=== PATIENT | male | born 1955 | race Caucasian/White ===

== ENCOUNTER 2016-09-25 06:10 | Outpatient (CLI) | payer OTHER ==
[~2016-09-25] VITALS: Ht 170.2 cm; Wt 181.0 kg
[2016-09-25] VITALS (9 sets, daily range): BP systolic 121–144; BP diastolic 56–76
[2016-09-25] MEDS ORDERED: IV NORMAL SALINE 1000ML BAG 1,000 ML IV SCH (06:34)
[2016-09-25] MEDS ORDERED: HEPARIN for ARTERIAL LINE 1,500 ML ONE (07:08)
[2016-09-25] MEDS ORDERED: IOHEXOL 300 MG/ML 100ML VIAL. ONE (07:08)
[2016-09-25] MEDS ORDERED: LIDOCAINE 2% 20 ML VIAL. ONE (07:09)
[2016-09-25 07:18] LABS: HEMATOCRIT 49.9 % (39.0-53.0); HEMOGLOBIN 16.1 g/dL (13.0-17.5); RED BLOOD COUNT 5.89 x10^6/uL (4.30-5.70); RED CELL DISTRIBUTION WIDTH 13.9 % (11.5-14.5)
[2016-09-25 07:25] LABS: CALCIUM 9.2 mg/dL (8.5-10.1); CREATININE 0.7 mg/dL (0.7-1.3); GFR 115.8; POTASSIUM 4.5 mmol/L (3.5-5.1)
[2016-09-25] MEDS ORDERED: ASPIRIN 325 MG TABLET ONE (07:26)
[2016-09-25] MEDS ORDERED: LISI-334 PO (07:31)
[2016-09-25] MEDS ORDERED: MV,1TABL3 PO (07:31)
[2016-09-25] MEDS ORDERED: NITROGLYCERIN 200 MCG/2 ML SYRINGE FOR CATH/VASC LAB. ONE (07:37)
[2016-09-25] MEDS ORDERED: HEPARIN for IV BOLUS 10,000 UNIT/10 ML VIAL. ONE (07:37)
[2016-09-25] MEDS ORDERED: FENTANYL PF 100 MCG/2 ML VIAL. ONE (07:37)
[2016-09-25] MEDS ORDERED: VERAPAMIL 5 MG/2 ML VIAL. ONE (07:38)
[2016-09-25] MEDS ORDERED: MIDAZOLAM HCL/PF 2 MG/2 ML VIAL. ONE (07:38)
[2016-09-25] MEDS ORDERED: ASPIRIN 325 MG TABLET PO ONE (07:45)
[2016-09-25 07:53] LABS: PROTHROMBIN TIME PATIENT 12.3 SEC (11.7-14.0)
[2016-09-25] MEDS ORDERED: FENTANYL PF 100 MCG/2 ML VIAL. IV ONE (08:00)
[2016-09-25] MEDS ORDERED: VERAPAMIL 5 MG/2 ML VIAL. IART ONE (08:00)
[2016-09-25] MEDS ORDERED: NITROGLYCERIN 200 MCG/2 ML SYRINGE FOR CATH/VASC LAB. IART ONE (08:00)
[2016-09-25] MEDS ORDERED: IOHEXOL 300 MG/ML 100ML VIAL. IART ONE (08:00)
[2016-09-25] MEDS ORDERED: HEPARIN for IV BOLUS 10,000 UNIT/10 ML VIAL. IART ONE (08:00)
[2016-09-25] MEDS ORDERED: MIDAZOLAM HCL/PF 2 MG/2 ML VIAL. IV ONE (08:00)
[2016-09-25] MEDS ORDERED: LIDOCAINE 2% 20 ML VIAL. IJ ONE (08:00)
[2016-09-25] MEDS ORDERED: FLUT1DIS3 IH (08:05)
[2016-09-25] MEDS ORDERED: GABA-586 PO (08:05)
[2016-09-25] MEDS ORDERED: GLIM4TAB2 PO (08:05)
[2016-09-25] MEDS ORDERED: TIOT18CA IH (08:05)
[2016-09-25] MEDS ORDERED: CHOL10003 PO (08:05)
[2016-09-25] MEDS ORDERED: LINA1TAB5 PO (08:05)
[2016-09-25] MEDS ORDERED: CELE200C PO (08:05)
[2016-09-25] MEDS ORDERED: CONTRAST GIVEN MC PRN (08:15)
--- NOTE | 2016-09-25 08:36 | CARD ---
APPROVED REPORT Procedure(s) performed: Left Heart Catheterization 100mL Omnipauqe 300 2.2 mins Fluoro 690.56cGy [id number] HISTORY The patient is a 60 year-old male with a history of : previous CHF, chronic lung disease, tobacco his tory() , hypertension, dyslipidemia. INDICATION The indication(s) include : positive stress test. PROCEDURE NARRATIVE The patient was brought electively to the cardiac catheterization lab. A timeout was performed confi rming the patient's name, date of , procedure, and site of procedure. All necessary personnel w ere wearing the appropriate protective equipment and radiation monitor devices. After explaining the risks and benefits of the procedure and alternatives, informed consent was obtained. (See nursing no cheryl for medications administered). The right wrist was sterilely prepped and draped in the usual fas hion. The right wrist was infiltrated with 1 mL of 2% lidocaine for subcutaneous anesthesia. A 6 Fr ench Terumo glide sheath was inserted into the right radial artery without difficulty. Right and lef t coronary angiography was performed using a 6Fr TIG 4.0 catheter. Left ventricular end diastolic pr essure was obtained with a pigtail catheter and pullback was performed after left ventriculography. All catheter exchanges and advancements were performed over a guidewire. At case completion the righ t radial sheath was removed and a Terumo radial band was applied with 13 ml of air. The patient tole rated the procedure well and there were no immediate complications. HEMODYNAMICS: LVEDP 18 mm Hg No gradient on LV to aortic pullback. LEFT VENTRICULOGRAM: EF 40% *Global hypokinesis *No significant MR noted. CORONARY ANGIOGRAPHY: LM is a large caliber vessel with normal angiographic appearance. LAD is a large caliber vessel with normal angiographic appearance. There are three small caliber diag onal branches that appear grossly normal. LCx is a moderate caliber non-dominant vessel with a proximal 40-50% stenosis. OM1 is a moderate caliber vessel with normal angiographic appearance. RCA is a large caliber dominant vessel with normal angiographic appearance. RPDA and RPL are moderate caliber vessels with normal angiographic appearance. Conclusion 1. Mild LV dysfunction. EF 40% 2. 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 Mildly elevated LVEDP. Recommendations Smoking Cessation Aggressive Medical Therapy Weight Loss Reduction Program Pulmonary consult.
[2016-09-25] MEDS ORDERED: 0.9 % SODIUM CHLORIDE 10 ML DISP.SYRIN. IV PRN (08:45)
[2016-09-25] MEDS ORDERED: NITROGLYCERIN SUBLINGUAL 0.4 MG BOTTLE OF 25. SL PRN (08:45)
== END 2016-09-25 11:45 | disposition home or self-care (01) ==
LOC: CCL 06:10
PROVIDERS: ATTEND Internal Medicine Cardiovascular Disease
DX: R94.39 Abnormal result of other cardiovascular function study (principal); I25.10 Atherosclerotic heart disease of native coronary artery without angina pectoris; I10 Essential (primary) hypertension; J44.9 Chronic obstructive pulmonary disease, unspecified; E66.9 Obesity, unspecified; M19.90 Unspecified osteoarthritis, unspecified site; E11.9 Type 2 diabetes mellitus without complications; Z87.442 Personal history of urinary calculi; Z87.891 Personal history of nicotine dependence; E78.5 Hyperlipidemia, unspecified; Z87.898 Personal history of other specified conditions
CPT/HCPCS: 36415; 80048; 85027; 85610; 93458; C1769; C1892; J2250; J3010; J3490; J7030; Q9967

== ENCOUNTER → 2016-11-06 | Outpatient (CLI) | payer OTHER ==
[2016-09-25 11:00] VITALS: BP 121/76
[~2016-11-06] MED LIST: CELE200C PO; CHOL10003 PO; FLUT1DIS3 IH; GABA-586 PO; GLIM4TAB2 PO; LINA1TAB5 PO; LISI-334 PO; MV,1TABL3 PO; TIOT18CA IH
--- NOTE | 2016-11-06 15:23 | RAD ---
Indication shortness of air. Frontal and lateral views of the chest were obtained. No prior imaging of the chest is available. Heart size is normal. There is slight, diffuse, interstitial prominence. On the basis of this single exam it is not certain whether this is a reflection of a chronic process such as fibrosis or is reflective of mild interstitial edema or an interstitial inflammatory process. There is no consolidated pneumonia. There is mild hyperexpansion. IMPRESSION: Mild interstitial prominence. See above discussion. No focal process is seen in the chest
== END | disposition home or self-care (01) ==
LOC: RAD 10:22
PROVIDERS: ATTEND Internal Medicine Critical Care Medicine
DX: J98.4 Other disorders of lung (principal)
CPT/HCPCS: 71020

== ENCOUNTER → 2017-08-12 | Outpatient (CLI) | payer OTHER | END | disposition home or self-care (01) | LOC: RAD 09:34 | DX: R06.02 Shortness of breath (principal) | CPT/HCPCS: 71046 ==